=== PATIENT | female | born 1955 | race Caucasian/White ===

== ENCOUNTER 2018-12-03 20:17 | Emergency (ER) | payer BC ==
[~2018-12-03] VITALS: Ht 165.1 cm; Wt 58.1 kg
[2018-12-03 20:23] VITALS: BP 145/78
[2018-12-03] MEDS ORDERED: LIDOCAINE-MPF 1%, 2ML ONE (20:50)
[2018-12-03] MEDS ORDERED: DIPH,PERTUSS(ACELL),TET VAC/PF 0.5 ML IM-VACC ONE ×2 (21:00→21:30)
[2018-12-03] MEDS ORDERED: LIDOCAINE-MPF 1%, 5ML INFIL ONE (21:00)
[2018-12-03] MEDS ORDERED: NEOSPORIN OINT. PKT 1 PACKET ONE (21:08)
== END 2018-12-03 22:02 | disposition home or self-care (01) ==
LOC: ED 21:20
DX: S01.81XA Laceration without foreign body of other part of head, initial encounter (principal); J45.909 Unspecified asthma, uncomplicated; E03.9 Hypothyroidism, unspecified; X58.XXXA Exposure to other specified factors, initial encounter; Y93.89 Activity, other specified; Y92.89 Other specified places as the place of occurrence of the external cause; Y99.8 Other external cause status
CPT/HCPCS: 12001; 12011; 90471; 90715